=== PATIENT | male | born 1940 | race African-American/Black ===

== ENCOUNTER 2016-11-09 09:40 | Outpatient (CLI) | payer MEDICARE, MEDICAID ==
--- NOTE | 2016-11-09 12:06 | RAD ---
THREE VIEWS OF THE LEFT KNEE: DATE: 11/09/16. HISTORY: Chronic knee pain without trauma. FINDINGS: There is moderate medial compartment narrowing with associated osteophyte formation involving the me dial tibial plateau. No significant knee joint effusion. Moderate patellofemoral joint space narro wing with superior posterior patellar osteophyte formation. No acute fracture or dislocation. IMPRESSION: Degenerative joint disease with no acute fracture or dislocation. POS: [facility]
--- NOTE | 2016-11-09 12:08 | RAD ---
THREE VIEWS OF THE RIGHT KNEE: DATE: 11/09/16. COMPARISON: None. HISTORY: Chronic knee pain without trauma. FINDINGS: There is moderate lateral compartment narrowing with lateral osteophyte formation involving the tibi al plateau. There is mild/moderate medial compartment narrowing as well. There is prominent patell ofemoral joint space narrowing. No acute fracture or dislocation. IMPRESSION: Multicompartment degenerative joint disease. No acute osseous abnormality. POS: [facility]
== END 2016-11-09 09:41 | disposition home or self-care (01) ==
LOC: MADRAD 09:40
PROVIDERS: ATTEND Family Medicine
DX: M25.561 Pain in right knee (principal); M25.562 Pain in left knee; G89.29 Other chronic pain; M17.0 Bilateral primary osteoarthritis of knee

== ENCOUNTER 2017-01-01 08:59 | Outpatient (CLI) | payer MEDICAID, MEDICARE ==
[2017-01-01 09:56] LABS: Hemoglobin A1c 4.2 % (4.0-6.0)
[2017-01-01 10:28] LABS: ALT (SGPT) 16 U/L (0-55); AST (SGOT) 19 U/L (5-34); Albumin 3.9 g/dL (3.4-4.8); Alkaline Phosphatase 55 U/L (40-150); Anion Gap 15 mmol/L (10-20); BUN (Urea Nitrogen) 8 mg/dL (8.4-25.7); Bilirubin, Total 1.1 mg/dL (0.2-1.2); Calc. Creatinine Clearance 0 mL/min (70-130); Calcium 8.7 mg/dL (7.8-10.44); Carbon Dioxide 25 mmol/L (23-31); Cardiac Risk 4.2 (Less than 4.5); Chloride 106 mmol/L (98-107); Cholesterol 155 mg/dL (< 200 Desired); Estimated GFR-MDRD Greater than 90; Globulin 3.2 g/dL (2.4-3.5); Glucose 91 mg/dL (83-110); HDL Cholesterol 37 mg/dL (>60 Neg Risk); LDL Cholesterol, Calculated 105 mg/dL; Potassium 3.3 mmol/L (3.5-5.1); Protein, Total 7.1 g/dL (5.8-8.1); Sodium 143 mmol/L (136-145); Triglycerides 63 mg/dL (Less than 150)
== END 2017-01-01 09:00 ==
LOC: MADLABBHPM 08:59
PROVIDERS: ATTEND Family Medicine
DX: I10 Essential (primary) hypertension (principal)
CPT/HCPCS: 36415; 80053; 80061; 83036